=== PATIENT | female | born 1945 | race Caucasian/White ===

== ENCOUNTER 2020-05-25 09:03 | Day surgery (SDC) | payer MEDICARE, BC ==
[2020-05-25] MEDS ORDERED: Propofol 200 MG/20 ML SDV IV ONE (09:04)
[2020-05-25] MEDS ORDERED: Lactated Ringers 1,000 ML IV SCH (09:15)
[2020-05-25] MEDS ORDERED: Sodium Chloride 0.9% 10 ML Syringe FLUSH PRN (09:15)
[2020-05-25] MEDS ORDERED: Propofol 200 MG/20 ML SDV ONE (10:34)
[2020-05-25 12:27] VITALS: BP 137/78
[2020-05-25 12:32] VITALS: PULSE 48
--- NOTE | 2020-05-25 12:35 | PCM.PRNOTE ---
- Free Text/Narrative Note: PROCEDURE PERFORMED: Colonoscopy with polypectomy PRE-PROCEDURE DIAGNOSIS/INDICATION FOR PROCEDURE: +Cologuard; no hx of colonoscopy CONSENT: Informed consent was obtained prior to the procedure after discussion of the risks (including pain, bleeding, infection, perforation, missed polyps, inability to completely remove polyps or complete procedure necessitating repeat colonoscopy, adverse reaction to anesthesia, cardiovascular event), benefits and alternatives and expected outcomes. The patient expressed understanding and wished to proceed. Verbal consent given and consent form signed. PROCEDURAL PAUSE: Completed SEDATION: Per anesthesia DESCRIPTION OF PROCEDURE: Patient was placed in the left lateral decubitus position. After adequate sedation and anesthetic was administered, a rectal exam was performed revealing no abnormalities. A lubricated Olympus Video Colonoscope was inserted into the rectum and air insufflation was performed. The colonoscope was advanced through the rectum, sigmoid, descending, transverse, and ascending colon without difficulties. The cecum was reached and the ileocecal valve as well as the appendiceal orifice were identified and pictorially documented. After adequate visualization of the cecum, the scope was withdrawn, giving 360-degree views of the colonic mucosa and retroflexion was performed in the rectum with the following findings noted: Ileocecal valve: Normal Cecum: Normal Ascending colon: Normal Hepatic flexure: Normal Transverse colon: Normal Splenic flexure: Normal Descending colon: Normal Sigmoid colon: At least 3 scattered small diverticuli. Rectum: Two <0.5cm sessile polyps removed with cold forceps; noted to have complete removal and subsequent hemostasis. The scope was straightened, air suction performed, and the scope withdrawn without complication. Preparation adequacy Mcrae [place] Bowel Prep score 9/9. IMPRESSION: Colonoscopy performed revealing: - Two small polyps, pathology now pending - Scattered sigmoid diverticuli PLAN: Will contact the patient when pathology results received with recommendation for repeat colonoscopy.
== END 2020-05-25 13:24 | disposition home or self-care (01) ==
LOC: KA.SDS 09:03
PROVIDERS: ATTEND Family Medicine
DX: D12.5 Benign neoplasm of sigmoid colon (principal); K57.30 Diverticulosis of large intestine without perforation or abscess without bleeding; I47.1 Supraventricular tachycardia; I27.20 Pulmonary hypertension, unspecified; E55.9 Vitamin D deficiency, unspecified; Z79.82 Long term (current) use of aspirin; Z90.49 Acquired absence of other specified parts of digestive tract; Z79.899 Other long term (current) drug therapy
CPT/HCPCS: 00812; 45380; 88305; J2704; J7120

== ENCOUNTER 2020-06-25 03:00 | Emergency (ER) | payer MEDICARE, BC ==
[2020-06-25] MEDS ORDERED: Lidocaine 2% with EPINEPHrine 1:200,000 20 ML SDV ONE (04:00)
--- NOTE | 2020-06-25 04:48 | EDM.PDOC ---
ED HPI GENERAL MEDICAL PROBLEM - General Chief Complaint: General Stated Complaint: nosebleed Time Seen by Provider: 06/25/20 04:32 Source of Information: Reports: Patient, Significant Other History Limitations: Reports: No Limitations - History of Present Illness INITIAL COMMENTS - FREE TEXT/NARRATIVE: Patient presents with bleeding from left nostril that started at 0200. She awoke with it. She tried to control it at home but couldn't. She has never had a bad nosebleed before and doesn't take any blood thinners except baby aspirin. - Related Data Allergies Allergy/AdvReac Type Severity Reaction Status Date / Time No Known Drug Allergies Allergy Other Verified 06/25/20 04:33 Home Meds: Home Meds Aspirin [Children's Aspirin] 81 mg PO DAILY 07/05/17 [History] Sertraline HCl 50 mg PO DAILY 07/05/17 [History] Cholecalciferol (Vitamin D3) [Vitamin D3] 2,000 unit PO DAILY 05/22/20 [History] Cyanocobalamin (Vitamin B-12) [Vitamin B-12] 250 mcg PO DAILY 05/22/20 [History] Magnesium Oxide [Magnesium] 500 mg PO DAILY 05/22/20 [History] Past Medical History - Past Health History Medical/Surgical History: Denies Medical/Surgical History HEENT History: Reports: Impaired Vision, Other (See Below) Other HEENT History: temporal arteritis Cardiovascular History: Reports: Heart Murmur Gastrointestinal History: Reports: None Genitourinary History: Reports: None 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: Musculoskeletal History: Reports: Arthritis Neurological History: Reports: Concussion, Migraines Psychiatric History: Reports: Anxiety, Depression Endocrine/Metabolic History: Reports: Vitamin D Deficiency Hematologic History: Reports: Anemia, Iron Deficiency Immunologic History: Reports: Immunosuppression - Infectious Disease History Infectious Disease History: Reports: Chicken Pox, Measles, Mumps - Past Surgical History Head Surgeries/Procedures: Reports: None HEENT Surgical History: Reports: Adenoidectomy, Cataract Surgery, Tonsillectomy Cardiovascular Surgical History: Reports: Other (See Below) Other Cardiovascular Surgeries/Procedures: phlebectomy bilateral lower extremities GI Surgical History: Reports: Appendectomy Female Surgical History: Reports: None Neurological Surgical History: Reports: None Dermatological Surgical History: Reports: None Social & Family History - Family History Family Medical History: No Pertinent Family History Neurological: Reports: CVA - Caffeine Use Caffeine Use: Reports: Coffee, Soda ED ROS GENERAL - Review of Systems Review Of Systems: Comprehensive ROS is negative, except as noted in HPI. ED EXAM, GENERAL - Physical Exam Exam: See Below Exam Limited By: No Limitations General Appearance: Alert, WD/WN, No Apparent Distress Eye Exam: Bilateral Eye: EOMI, Normal Inspection, PERRL Ears: Normal External Exam, Hearing Grossly Normal Nose: Other (bleeding from left nostril quite briskly). No: Nasal Tenderness, Nasal Deformity, Nasal Swelling, Clear Rhinorrhea, Nasal Flaring Throat/Mouth: Normal Lips, Normal Voice, No Airway Compromise, Other (clot in posterior pharynx) Head: Atraumatic, Normocephalic Neck: Normal Inspection, Full Range of Motion Respiratory/Chest: No Respiratory Distress, Lungs Clear, Normal Breath Sounds, No Accessory Muscle Use Cardiovascular: Regular Rate, Rhythm, No Murmur GI/Abdominal: Normal Bowel Sounds Back Exam: Normal Inspection, Full Range of Motion Extremities: Normal Inspection, Normal Range of Motion, Normal Capillary Refill Neurological: Alert, Oriented, Normal Cognition, No Motor/Sensory Deficits Psychiatric: Normal Affect, Normal Mood Skin Exam: Warm, Dry, Intact, Normal Color, No Rash. No: Cyanosis, Pallor Course - Re-Assessments/Exams Free Text/Narrative Re-Assessment/Exam: 06/25/20 04:41 After anesthetizing left nostril with Q-tips soaked in 2% lido/epi three times, an anterior/posterior Rapid Rhino insertion was attempted. However I was unable to insert it as far as usual so switched to the anterior Rapid Rhino catheter which was successfully inserted nearly all the way. The catheters had been soaked in sterile water prior to insertion. This successfully controlled the bleeding. We monitored the patient for 30 minutes for recurrence and instructed them on use of the syringe to re-inflate the catheter if necessary. Patient's blood pressure was initially high and tapered off but henry again while placing the catheter. It dropped back to 166/81 before departure to home in stable condition. She will call her PCP when clinic opens this morning and see if she should follow up there or go to [place] and see ENT for removal of the catheter today or tomorrow. She understands that it needs to be removed by Monday for sure. Departure - Departure Time of Disposition: 04:48 Disposition: Home, Self-Care 01 Condition: Good Clinical Impression: Left-sided nosebleed - Discharge Information Referrals: Vikki Delarosa MD [Primary Care Provider] - Additional Instructions: Hand-written on sheet as computer was down while patient was here.
[2020-06-25 06:51] VITALS: BP 166/81; PULSE 60
== END 2020-06-25 04:41 | disposition home or self-care (01) ==
LOC: KA.ED 03:00
DX: R04.0 Epistaxis (principal); M19.90 Unspecified osteoarthritis, unspecified site; Z79.82 Long term (current) use of aspirin; Z79.899 Other long term (current) drug therapy
CPT/HCPCS: 30901; 30903; 99283; 99283-25